=== PATIENT | female | born 1985 | race Caucasian/White ===

== ENCOUNTER 2019-03-14 22:03 | Emergency (ER) | payer MEDICAID ==
[2019-03-14] MEDS ORDERED: cefTRIAXone 1 GM Vial IM ONE (22:11)
--- NOTE | 2019-03-14 22:19 | EDM.PDOC ---
ED HPI GENERAL MEDICAL PROBLEM - General Stated Complaint: POSSIBLE SPIDER BITE Time Seen by Provider: 03/14/19 22:10 Source of Information: Reports: Patient, Family History Limitations: Reports: No Limitations - History of Present Illness INITIAL COMMENTS - FREE TEXT/NARRATIVE: 33 y.o.w.salma came to te ed one day after she may have been stuck by a "bug" which she noticed when she took off her boots. She noticed swelling and redness of her left ankle, has FROM however, with some discomfort. No Trauma. No other acute med issues. BP 112/71 RR 17 Pulse ox 100% on RA Pulse 80 Temp 36.8 Onset Date: 03/13/19 Onset Time: 19:00 Duration: Day(s):, Getting Worse Location: Reports: Lower Extremity, Left (ankle) Quality: Reports: Ache, Burning, Dull Severity: Moderate Improves with: Reports: Rest Worsens with: Reports: Movement Context: Reports: Other (spider bite?) Associated Symptoms: Reports: No Other Symptoms Left Ankle Pain Score (Numeric/FACES): 7 - Related Data Allergies Allergy/AdvReac Type Severity Reaction Status Date / Time ciprofloxacin [From Cipro] Allergy Cannot Verified 03/14/19 23:12 Remember codeine Allergy Nausea and Verified 03/14/19 23:12 Vomiting Home Meds: Home Meds Hydrocodone/Acetaminophen [Hydrocodon-Acetaminophen 5-325] 1 - 2 tab PO Q4HR PRN #20 tablet 04/09/18 [Rx] Doxycycline [Vibramycin] 100 mg PO BID #20 cap 03/14/19 [Rx] Past Medical History Genitourinary History: Reports: Pyelonephritis, UTI, Recurrent Other Genitourinary History: dx with UTI 09/01. Started on Bactrim until yest & told to switch ABX to Macrobid. CLINICAL REVIEW NURSE History: Reports: Other CLINICAL REVIEW NURSE History: recently had vag delivery 08/30/2015., Psychiatric History: Reports: Addiction Other Psychiatric History: hx meth abuse Dermatologic History: Reports: Other (See Below) Other Dermatologic History: hx sun spots - Past Surgical History HEENT Surgical History: Reports: Oral Surgery Female Surgical History: Reports: None Social & Family History - Family History Family Medical History: Noncontributory - Caffeine Use Caffeine Use: Reports: Soda - Living Situation & Occupation Living situation: Reports: Single ED ROS GENERAL - Review of Systems Review Of Systems: See Below Constitutional: Reports: No Symptoms HEENT: Reports: No Symptoms Respiratory: Reports: No Symptoms Cardiovascular: Reports: No Symptoms Endocrine: Reports: No Symptoms GI/Abdominal: Reports: No Symptoms : Reports: No Symptoms Musculoskeletal: Reports: Joint Swelling (leftankle) Skin: Reports: Erythema (left ankle) Neurological: Reports: No Symptoms Psychiatric: Reports: No Symptoms Hematologic/Lymphatic: Reports: No Symptoms Immunologic: Reports: No Symptoms ED EXAM, SKIN/RASH Exam: See Below Exam Limited By: No Limitations General Appearance: Alert, WD/WN, Mild Distress Eye Exam: Bilateral Eye: Normal Inspection Ears: Normal External Exam Nose: Normal Inspection Throat/Mouth: Normal Lips, Normal Voice, No Airway Compromise Head: Atraumatic, Normocephalic Neck: Normal Inspection, Supple, Full Range of Motion Respiratory/Chest: No Respiratory Distress, Lungs Clear, Normal Breath Sounds, Chest Non-Tender Cardiovascular: Normal Peripheral Pulses, Regular Rate, Rhythm, No Edema Peripheral Pulses: 1+: Brachial (L) GI/Abdominal: Normal Bowel Sounds, Soft, Non-Tender, No Organomegaly, No Abnormal Bruit, No Mass, Pelvis Stable (Female) Exam: Deferred Rectal (Female) Exam: Deferred Back Exam: Normal Inspection Extremities: Limited Range of Motion (left ankle) Neurological: Alert, Oriented, CN II-XII Intact, Normal Cognition, Abnormal Gait (left ankle pain) Location, Skin: Lower Extremity, Left Characteristics: Erythematous Lymphatic: No Adenopathy Course - Vital Signs Text/Narrative:: 33 y.o.w.f came to te ed one day after she may have been stuck by a "bug" which she noticed when she took off her boots. She noticed swelling and redness of her left ankle, has FROM however, with some discomfort. No Trauma. No other acute med issues. BP 112/71 RR 17 Pulse ox 100% on RA Pulse 80 Temp 36.8 PE: WNWD W F with redness of left ankle Imaging: Not indicated Labs: CBC, BMP nl, Blood Cx results are pending Impression: Cellulitis left ankle Tx: Alejandro Reexam: Improved Plan: D/C with instructions Last Recorded V/S: Last Vital Signs Temp 36.8 C 03/14/19 22:10 Pulse 92 03/14/19 22:10 Resp 18 03/14/19 22:10 BP 109/89 03/14/19 22:10 Pulse Ox 97 03/14/19 22:10 - Orders/Labs/Meds Orders: Active Orders 24 hr Category Date Time Status CULTURE BLOOD [BC] Urgent Lab 03/14/19 22:20 Received CULTURE BLOOD [BC] Urgent Lab 03/14/19 22:26 Received Blood Culture x2 Reflex Set [OM.PC] Urgent Oth 03/14/19 22:10 Ordered Labs: Laboratory Tests 03/14/19 03/14/19 Range/Units 22:20 22:20 WBC 8.1 (4.5-12.0) X10-3/uL RBC 4.34 (3.23-5.20) x10(6)uL Hgb 14.0 (11.5-15.5) g/dL Hct 40.8 (30.0-51.3) % MCV 94.1 (80-96) fL MCH 32.3 (27.7-33.6) pg MCHC 34.3 (32.2-35.4) g/dL RDW 12.8 (11.5-15.5) % Plt Count 371 H (125-369) X10(3)uL MPV 7.4 (7.4-10.4) fL Neut % (Auto) 66.7 (46-82) % Lymph % (Auto) 22.9 (13-37) % [place] % (Auto) 8.0 (4-12) % Eos % (Auto) 2 (1.0-5.0) % Baso % (Auto) 1 (0-2) % Neut # (Auto) 5.4 (1.6-8.3) # Lymph # (Auto) 1.9 (0.6-5.0) # [place] # (Auto) 0.7 (0.0-1.3) # Eos # (Auto) 0.1 (0.0-0.8) # Baso # (Auto) 0.0 (0.0-0.2) # Sodium 138 (135-145) mmol/L Potassium 3.8 (3.5-5.3) mmol/L Chloride 104 D (100-110) mmol/L Carbon Dioxide 25 (21-32) mmol/L BUN 12 (7-18) mg/dL Creatinine 0.6 (0.55-1.02) mg/dL Est Cr Clr Drug Dosing TNP Estimated GFR (MDRD) > 60 (>60) BUN/Creatinine Ratio 20.0 (9-20) Glucose 109 (80-116) mg/dL Calcium 8.7 (8.6-10.2) mg/dL Meds: Medications Discontinued Medications Generic Name Dose Route Start Last Admin Trade Name Syed PRN Reason Stop Dose Admin Ceftriaxone Sodium 1 gm 03/14/19 22:11 03/14/19 22:42 Rocephin IM 03/14/19 22:12 1 gm ONETIME ONE Administration Departure - Departure Time of Disposition: 22:48 Disposition: Home, Self-Care 01 Condition: Good Clinical Impression: Cellulitis Qualifiers: Site of cellulitis: extremity Site of cellulitis of extremity: lower extremity Laterality: left Qualified Code(s): L03.116 - Cellulitis of left lower limb - Discharge Information Prescriptions: Doxycycline [Vibramycin] 100 mg PO BID #20 cap Referrals: PCP,None [Primary Care Provider] - Forms: ED Department Discharge Additional Instructions: Rest, ice and elevation, please take Motrin for pain, please take the Abx as recommended, please come back if your symptoms get worse acutely - My Orders Last 24 Hours: My Active Orders 03/14/19 22:10 Blood Culture x2 Reflex Set [OM.PC] Urgent 03/14/19 22:20 CULTURE BLOOD [BC] Urgent 03/14/19 22:26 CULTURE BLOOD [BC] Urgent - Assessment/Plan Last 24 Hours: My Active Orders 03/14/19 22:10 Blood Culture x2 Reflex Set [OM.PC] Urgent 03/14/19 22:20 CULTURE BLOOD [BC] Urgent 03/14/19 22:26 CULTURE BLOOD [BC] Urgent
[2019-03-14 23:12] VITALS: BP 109/89; PULSE 92
== END 2019-03-14 23:03 | disposition home or self-care (01) ==
LOC: FB.ED 22:03
DX: L03.116 Cellulitis of left lower limb (principal); Z88.5 Allergy status to narcotic agent; Z88.1 Allergy status to other antibiotic agents
CPT/HCPCS: 36415; 80048; 85025; 87040; 96372; 99282; J0696

== ENCOUNTER 2023-02-17 14:31 | Emergency (ER) | payer MEDICAID ==
[2023-02-17] MEDS ORDERED: Cephalexin 500 MG Cap PO ONE (14:32)
[2023-02-17] MEDS ORDERED: predniSONE 20 MG Tab PO ONE (14:32)
[2023-02-17 15:15] VITALS: BP 113/77; PULSE 91
== END 2023-02-17 15:11 | disposition home or self-care (01) ==
LOC: FB.ED 14:31
DX: L03.116 Cellulitis of left lower limb (principal); Z88.1 Allergy status to other antibiotic agents; Z88.5 Allergy status to narcotic agent; Z86.16 Personal history of COVID-19; Z72.0 Tobacco use
CPT/HCPCS: 99283; A9270; J7512